=== PATIENT | male | born 1995 | race Caucasian/White ===

== ENCOUNTER 2017-07-23 02:50 | Emergency (ER) | payer BC, OTHER ==
[~2017-07-23] VITALS: Ht 182.9 cm; Wt 74.2 kg
[2017-07-23 02:58] VITALS: TEMP 36.8; O2SAT 98; Ht 182.9 cm; Wt 74.2 kg
[2017-07-23 04:32] LABS: BUN/CREATININE RATIO 9.2 (10-20); CALCIUM 8.4 mg/dl (8.5-10.1); CREATININE 1.1 mg/dl (0.60-1.40); POTASSIUM 3.6 mmol/L (3.5-5.1)
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
[2017-07-23 08:12] VITALS: BP 113/68; PULSE 85; O2SAT 96
== END 2017-07-23 08:14 | disposition home or self-care (01) ==
LOC: C.EDA 02:52
DX: F10.129 Alcohol abuse with intoxication, unspecified (principal); Y90.8 Blood alcohol level of 240 mg/100 ml or more